=== PATIENT | female | born 1940 | race Two or more races ===

== ENCOUNTER 2018-04-11 23:54 | Emergency (ER) | payer OTHER ==
[~2018-04-11] VITALS: Ht 154.9 cm; Wt 74.8 kg
[~2018-04-11 23:54] MED LIST: ACTONEL5 MG PO; AMOX1TAB12 PO; AVALIDE 150-12.1 TA1 PO; CALTRATE 600600 MG PO; COZAAR25 MG; INTESTINEX1 CAP PO; PLAVIX75 MG PO; SYNTHROID50 MCG PO
[2018-04-12] MEDS ORDERED: CARAFATE1 GM/10 ML PO (09:16)
[2018-04-12] MEDS ORDERED: CIPRO500 MG PO (09:33)
== END 2018-04-12 09:52 | disposition home or self-care (01) ==
LOC: ER 23:54
DX: K29.70 Gastritis, unspecified, without bleeding (principal); R11.11 Vomiting without nausea

== ENCOUNTER 2018-05-07 08:47 | Outpatient (CLI) | payer OTHER ==
[~2018-05-07 08:47] MED LIST changes: +CARAFATE1 GM/10 ML PO; +CIPRO500 MG PO
== END 2018-05-07 08:54 | disposition home or self-care (01) ==
LOC: RAD 501 08:47
DX: M12.9 Arthropathy, unspecified (principal); M19.90 Unspecified osteoarthritis, unspecified site

== ENCOUNTER 2018-05-17 08:14 | Outpatient (CLI) | payer OTHER | END 2018-05-17 08:22 | disposition home or self-care (01) | LOC: SONOGRAMA 08:14 → MAMO-SONO 08:15 → SONOGRAMA 08:22 | DX: R10.9 Unspecified abdominal pain (principal) ==

== ENCOUNTER 2018-06-20 08:57 | Outpatient (CLI) | payer OTHER | END 2018-06-20 09:30 | disposition home or self-care (01) | LOC: NUCLEAR 08:57 | DX: K81.1 Chronic cholecystitis (principal) | CPT/HCPCS: 78227; A9537 ==

== ENCOUNTER → 2019-02-12 | Outpatient (CLI) | payer OTHER ==
[~2019-02-12] MED LIST changes: +ALENDRONATE SOD70 MG PO; +PREVACID30 MG PO; +SYNTH PO
== END | disposition home or self-care (01) ==
LOC: NUCLEAR 10:00
DX: M81.0 Age-related osteoporosis without current pathological fracture (principal); M85.88 Other specified disorders of bone density and structure, other site

== ENCOUNTER 2020-05-06 15:13 | Emergency (ER) | payer OTHER ==
[~2020-05-06] VITALS: Ht 160 cm; Wt 68.0 kg
[2020-05-06] MEDS ORDERED: COZAAR25 MG (15:30)
[2020-05-06] MEDS ORDERED: LEVOTHYROXINE25 MCG (15:31)
[2020-05-06] MEDS ORDERED: RESTORIL30 M1 (15:31)
[2020-05-06] MEDS ORDERED: SEROQUEL50 MG (15:31)
[2020-05-06] MEDS ORDERED: NAMENDA XR28 MG (15:31)
[2020-05-06] MEDS ORDERED: ZOLOFT50 MG (15:31)
== END 2020-05-06 17:34 | disposition home or self-care (01) ==
LOC: ER 15:13
DX: S01.82XA Laceration with foreign body of other part of head, initial encounter (principal); G30.8 Other Alzheimer's disease; F02.80 Dementia in other diseases classified elsewhere, unspecified severity, without behavioral disturbance, psychotic disturbance, mood disturbance, and anxiety; W18.09XA Striking against other object with subsequent fall, initial encounter; Y93.89 Activity, other specified; Y92.018 Other place in single-family (private) house as the place of occurrence of the external cause; Y99.8 Other external cause status